=== PATIENT | female | born 2000 | race Caucasian/White ===

== ENCOUNTER 2018-08-19 18:55 | Emergency (ER) | payer OTHER ==
--- NOTE | 2018-08-19 19:20 | EDPHY ---
H & P Stated Complaint: cough & chills for 2 days Time Seen by Provider: 08/19/18 19:20 - Personal History LMP (Females 10-55): 1-7 Days Ago Current Tetanus/Diphtheria Vaccine: Yes Current Tetanus Diphtheria and Acellular Pertussis (TDAP): Yes - Medical/Surgical History Hx Asthma: No Hx Chronic Respiratory Disease: No Hx Diabetes: No Hx Cardiac Disease: No Hx Renal Disease: No Hx Cirrhosis: No Hx Alcoholism: No Hx HIV/AIDS: No Hx Splenectomy or Spleen Trauma: No - Social History Smoking Status: Light smoker Constitutional: Initial Vital Signs Temperature (C) 36.5 C 08/19/18 18:56 Heart Rate 85 08/19/18 18:56 Respiratory Rate 16 08/19/18 18:56 Blood Pressure 116/80 08/19/18 18:56 O2 Sat (%) 99 08/19/18 18:56 O2 Delivery Mode Room Air Allergies/Adverse Reactions: No Known Allergies Allergy (Unverified 08/19/18 18:58) Home Medications: Medication Instructions Recorded Ondansetron Odt [Zofran Odt 4 mg 4 mg PO Q4 PRN #10 tab 08/19/18 (RX)] Medical Decision Making ED Course/Re-evaluation: CHIEF COMPLAINT: Fever, vomiting, cough HISTORY OF PRESENT ILLNESS: This patient is a 18 year old female complaining of fever, vomiting, and cough. Her symptoms began yesterday with generalized body aches, headache, and chills. She developed nausea and vomiting and has vomited several times. She has been unable to tolerate foods by mouth. She endorses a mild cough as well. She denies chest pain, shortness of breath, diarrhea, urinary complaints, or other associated symptoms. REVIEW OF SYSTEMS: A comprehensive 10 system review of systems is otherwise negative aside from elements mentioned in the history of present illness and medical decision making. PHYSICAL EXAM: HR, BP, O2 Sat, RR. Temp noted General Appearance: Alert, well hydrated, appropriate, and non-toxic appearing. Head: Atraumatic without scalp tenderness or obvious injury Eyes: Pupils equal, round, reactive to light and accommodation, EOMI, no trauma , no injection. Ears: Clear bilaterally, no perforation, normal landmarks Nose: Atraumatic, no rhinorrhea, clear. Throat: There is no erythema or exudates, no lesions, normal tonsils, mucus membranes moist. Neck: Supple, nontender, no lymphadenopathy. Respiratory: No retractions, no distress, no wheezes, and no accessory muscle use. Lungs are clear to auscultation bilaterally. Cardiovascular: Regular rate and rhythm. Good capillary refill all extremities. Gastrointestinal: Abdomen is soft, nontender, non-distended, no masses, no rebound, no guarding, no peritoneal signs. Musculoskeletal: Normal active ROM of all extremities, atraumatic. Neurological: Alert, appropriate, and interactive. Nonfocal neuro exam. Skin: No rashes, good turgor, no nodules on palpation. Past medical history: Denies Past surgical history: Noncontributory Family history: Noncontributory Social history: Student at [employer]. Single. Does not abuse tobacco, drugs, or alcohol DIFFERENTIAL DIAGNOSIS: The differential diagnosis for the patient's nausea and vomiting included but was not limited to gastroenteritis, gastritis, appendicitis, and medication side effect. MEDICAL DECISION MAKIN18 y/o female presents with fever, nausea, and vomiting. Exam largely unremarkable. She is afebrile here in the emergency department. IV established. Plan to administer 2L IV NS, 4mg IV Zofran, 2mg IV morphine for symptom relief. 21:03 Patient continues to feel nauseous. Plan to administer 10mg IV Reglan for nausea relief. 21:45 Patient is feeling better following medication administration. She has tolerated a PO challenge. Plan to discharge home in good condition with prescription for Zofran. Follow up and return precautions discussed. She is comfortable with this plan. - Data Points Medications Given: Discontinued Medications Sodium Chloride (Ns) 1,000 mls @ 0 mls/hr IV EDNOW ONE; Wide Open PRN Reason: Protocol Stop: 08/19/18 19:27 Last Admin: 08/19/18 19:39 Dose: 1,000 mls Sodium Chloride (Ns) 1,000 mls @ 0 mls/hr IV EDNOW ONE; Wide Open PRN Reason: Protocol Stop: 08/19/18 19:27 Last Admin: 08/19/18 19:38 Dose: 1,000 mls Metoclopramide HCl (Reglan Injection) 10 mg IVP EDNOW ONE Stop: 08/19/18 21:04 Last Admin: 08/19/18 21:08 Dose: 10 mg Morphine Sulfate (Morphine) 2 mg IVP EDNOW ONE Stop: 08/19/18 19:27 Last Admin: 08/19/18 19:36 Dose: 2 mg Ondansetron HCl (Zofran) 4 mg IVP EDNOW ONE Stop: 08/19/18 19:27 Last Admin: 08/19/18 19:36 Dose: 4 mg Ondansetron HCl (Zofran Odt 4 Mg Prepack#2) 1 btl TAKEHOME EDNOW ONE Stop: 08/19/18 21:58 Last Admin: 08/19/18 21:58 Dose: 1 btl Departure - Departure Disposition: Home, Routine, Self-Care Clinical Impression: Viral syndrome, Gastroenteritis Condition: Good Instructions: Gastroenteritis (ED), Viral Syndrome (ED) Additional Instructions: Stay well hydrated. Take Zofran as prescribed as needed for nausea. Take ibuprofen or Tylenol for fever and body aches. Return for high fever, inability to tolerate fluids by mouth, or other worsening of condition. Referrals: [facility] [[facility]] - As per Instructions Prescriptions: Ondansetron Odt [Zofran Odt 4 mg (RX)] 4 mg PO Q4 PRN #10 tab PRN Reason: Nausea/Vomiting, Use 1st Report Scribed for: Gómez Marques Report Scribed by: Marga Mitchell Date of Report: 08/19/18 Time of Report: 19:29
[2018-08-19] MEDS ORDERED: ONDANSETRON 4 MG/2 ML VIAL IVP ONE (19:26)
[2018-08-19] MEDS ORDERED: NS 1,000 ML IV ONE ×2 (19:26)
[2018-08-19] MEDS ORDERED: METOCLOPRAMIDE 10 MG/2 ML VIAL IVP ONE (21:03)
[2018-08-19] MEDS ORDERED: ONDANSETRON 4MG PREPACK#2 BTL TAKEHOME ONE ×2 (21:56→21:57)
[2018-08-19 22:00] VITALS: BP 113/69
== END 2018-08-19 21:59 | disposition home or self-care (01) ==
DX: A08.4 Viral intestinal infection, unspecified (principal); E86.9 Volume depletion, unspecified
CPT/HCPCS: 96374; J2270; J2405; J2765